=== PATIENT | male | born 1955 | race Caucasian/White ===

== ENCOUNTER 2018-10-25 06:50 | Outpatient (CLI) | payer MEDICARE, OTHER ==
[~2018-10-25 06:50] MED LIST: BACL-19 PO; CARI350T PO; GABA100C PO; METH10TA2 PO; OXYC1TAB7 PO; [UNRECOGNIZED DRUG - OTHER] TP
== END 2018-10-25 23:59 | disposition home or self-care (01) ==
LOC: CVU 06:50
PROVIDERS: ATTEND Family Medicine
DX: I87.2 Venous insufficiency (chronic) (peripheral) (principal); I83.93 Asymptomatic varicose veins of bilateral lower extremities; M79.89 Other specified soft tissue disorders
CPT/HCPCS: 93971

== ENCOUNTER → 2018-10-30 | Outpatient (CLI) | payer MEDICARE, OTHER ==
[~2018-10-30] MED LIST changes: +OMNIPAQUE 350 MG/ML, 100ML BOTTLE ONE
== END | disposition home or self-care (01) ==
LOC: CFH 08:08
PROVIDERS: ATTEND Family Medicine
DX: I83.93 Asymptomatic varicose veins of bilateral lower extremities (principal); M79.89 Other specified soft tissue disorders; R42 Dizziness and giddiness
CPT/HCPCS: 70470; 82565; Q9967